=== PATIENT | female | born 1935 | race Caucasian/White ===

== ENCOUNTER → 2017-04-24 | Outpatient (CLI) | payer MEDICARE, BC ==
[2013-12-24 10:25] VITALS: BMI 25.7
[~2017-04-24] MED LIST: AMIT-104 PO; ASCO100T PO; ASPI-1441 PO; AZIT-1 PO; Aspirin PO; CALC3.7S7 NS; CALC600T72 PO; CELE-1 PO; CET10 PO; ETHA400T30 PO; FOLI-68 PO; GLUC500C29 PO; IBU600 PO; IPRA15SP7 NS; LOR10 PO; LOVA40TA89 PO; METF-410 PO; MULT-820 PO; NADO80TA13 PO; NADOLOL PO; OMEP-218 PO; PAN40 PO; PER PO; RIFA300C50 PO; TOLT4CAP13 PO; TRA50 PO; [UNRECOGNIZED DRUG - CODE] PO; [UNRECOGNIZED DRUG - OTHER]; [UNRECOGNIZED DRUG - OTHER] PO; [UNRECOGNIZED DRUG - REMARK]
== END ==
LOC: AUD 13:00
PROVIDERS: ATTEND Otolaryngology
DX: H93.13 Tinnitus, bilateral (principal)
CPT/HCPCS: 92557; 92570

== ENCOUNTER → 2017-05-18 | Outpatient (CLI) | payer MEDICARE, BC ==
[2013-12-24 10:25] VITALS: BMI 25.7
--- NOTE | 2017-05-18 09:11 | RADIOLOGY IMAGING REPORT ---
FACILITY: [facility] - [place] PATIENT NAME: Catherine Ward : 1935 MR: [id number] V: [id number] EXAM DATE: ORDERING PHYSICIAN: RICHARD RUIZ TECHNOLOGIST: Location: [facility] - [place] Patient: Catherine Ward : 1935 Visit/Account:[id number] Date of Sevice: 05/18/2017 CHEST W/O CONTRAST Indication: Lung nodule, previous smoker Comparison: CT chest 09/25/[address] chest 06/26/2016 TECHNIQUE: Noncontrast CT thoracic inlet through the adrenal glands obtained. One of the following d ose optimization techniques was utilized in the performance of this exam: automated exposure control; adjustment of the mA and/or kV according to the patient's size; or use of an iterative reconstructio n technique. Specific details can be referenced in the facility's radiology CT exam operational emma cy. FINDINGS: Lungs: In the right upper lobe there is a 4 mm smooth bordered nodule (image 50/103), unchanged from 06/26/2016. There is a left apical nodule, 6 mm (image 15/103), also unchanged. Linear scarring is se en in the lingula, stable. There is overall improved aeration of the lungs compared to prior study. L inear scarring is also seen in the right lung base, stable. Mediastinum / shaunna: Heart size is normal. Great vessels are unremarkable. Musculoskeletal / Body wall: There are postoperative changes from a left mastectomy. Lower neck: Normal. Upper abdomen: Visualized organs of the upper abdomen are normal. IMPRESSION: 1. There is a 6 mm nodule right upper lobe, 4 mm nodule left upper lobe. Both nodules are unchanged f rom the oldest available comparison CT dated 06/26/2016. 2. Postoperative changes left mastectomy, stable. 3. Linear scarring lingula and right lower lobe. Recommend follow-up noncontrast chest CT in one year. Report Dictated By: Maulik Caldwell at 05/18/2017 8:41 AM Report E-Signed By: Maulik Caldwell at 05/18/2017 9:06 AM WSN:[id number]
== END ==
LOC: CT 01:08
PROVIDERS: ATTEND Internal Medicine
DX: R91.8 Other nonspecific abnormal finding of lung field (principal); Z90.12 Acquired absence of left breast and nipple
CPT/HCPCS: 71250

== ENCOUNTER 2017-07-08 08:53 | Emergency (ER) | payer MEDICARE, BC ==
[2013-12-24 10:25] VITALS: Wt 68.5 kg
--- NOTE | 2017-07-08 09:08 | ER Report ---
History and Physical Time Seen By MD: 09:07 Hx. of Stated Complaint: PT REPORTS A MIGRAINE, TOOK 2 EXCEDRIN MIGRAINE AT HOME. L HAND NUMBNESS WITH MIGRAINE- NEW SYPMTOM WITH MIGRAINE- PT REPORTS NO NUMBNESS IN HAND AT THIS TIME HPI/ROS CHIEF COMPLAINT: Left hand numbness HISTORY OF PRESENT ILLNESS:Patient is a 81-year-old female who states that she developed a migraine headache which she does have a history of. Soon after the migraine she developed some numbness to her left hand. She did take 2 Excedrin the migraine has resolved. She then took an aspirin and is no longer experiencing numbness to her left hand. At no time was or any speech difficulties, balance issues or coordination issues. No motor weakness was noted. What is a typical with regard to this migraine headache is the numbness to the left hand. Patient has concern about having a stroke as that her ' s sister experienced 1 and she has concerns that this could represents stroke. The patient again currently is symptom-free she denies any chest pain or shortness of breath. She does not carry a diagnosis of hypertension we'll hypertensive on initial evaluation. REVIEW OF SYSTEMS: Constitutional: No fever, no chills. Eyes: No discharge. ENT: No sore throat. Cardiovascular: No chest pain, no palpitations. Respiratory: No cough, no shortness of breath. Gastrointestinal: No abdominal pain, no vomiting. Genitourinary: No hematuria. Musculoskeletal: No back pain. Skin: No rashes. Neurological: Currently No headache. Left hand numbness has resolved Allergies: Uncoded Allergies: hayfever (Allergy, Mild, UNKNOWN, 08/09/11) Home Meds Active Scripts Ipratropium [place] 0.06% Ns (IPRATROPIUM BROMIDE 0.06% NS) 15 Ml [place], 2 SPRAYS NS BID for 30 Days, #1 BOT 11 Refills Prov:LYNDA TORREZ JR, MD 03/14/17 [Nadolol] 40 MG TAB No Conflict Check, 40 MG PO DAILY, #0 TAB Restart in about 3 days. If you get light headed on the medication, stop it and follow up with your regular doctor. Prov:TERRI CORDOBA MD 12/26/13 Reported Medications Ascorbic Acid (VITAMIN C) 500 Mg Tablet, 500 MG PO QDAY, TAB 07/08/17 Calcium Carbonate (CALCIUM) 600 Mg Tablet, 1200 MG PO QDAY 07/08/17 Aspirin (ASPIR 81) 81 Mg Tablet.dr, 81 MG PO Q2D, TAB 07/08/17 [magnesium ] No Conflict Check, 100 MG PO BID 07/08/17 Montelukast Sodium (SINGULAIR) 10 Mg Tablet, 1 TAB PO QDAY, TAB 07/08/17 Levothyroxine Sodium (LEVOTHYROXINE SODIUM) 50 Mcg Tablet, QDAY 07/08/17 Nortriptyline Hcl (NORTRIPTYLINE HCL) 10 Mg Cap, QDAY 07/08/17 Ethambutol Hcl (ETHAMBUTOL HCL) 400 Mg Tablet, 400 MG PO 02/23/17 Folic Acid (FOLIC ACID) 1 Mg Tablet, 1 MG PO QDAY, TAB 02/23/17 Rifampin (RIFAMPIN) 300 Mg Capsule, 300 MG PO, CAPSULE 02/23/17 Metformin Hcl (METFORMIN HCL) 500 Mg Tablet, 1 TAB PO BID, TAB 02/23/17 Omeprazole Magnesium (PRILOSEC OTC) 20 Mg Tablet.dr, 1 TAB PO QDAY TAKE ONE TABLET BY MOUTH ONCE A DAY 12/16/13 Multivitamins (Multivitamin) 1 Tab Tablet, 1 TAB PO QDAY 12/01/08 Lovastatin (Lovastatin) 40 Mg Tablet, 40 MG PO QDAY 12/01/08 Tolterodine Tartrate (Detrol La) 4 Mg Cap.sr.24h, 4 MG PO QDAY 12/01/08 Discontinued Reported Medications Azithromycin (ZITHROMAX) 250 Mg Tablet, 2 TAB PO ONCE, TAB 02/23/17 Amitriptyline Hcl (AMITRIPTYLINE HCL) 10 Mg Tablet, 10 MG PO QHS, #5 TAB TAKE ONE TABLET BY MOUTH AT BEDTIME 12/23/13 Discontinued Scripts [Aspirin] 325 MG TAB No Conflict Check, 325 MG PO QDAY, TAB Take for 4 weeks then resume the 81mg tablet a day of Aspirin Prov:TERRI CORDOBA MD 12/26/13 Past Medical/Surgical History Past medical history for migraines, hyperlipidemia, GERD, type II diabetes, history of cataract extraction, hysterectomy, mastectomy bilateral, lumbar laminectomy. 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 Smoking Status: Never Smoker Hx Alcohol Use: No Constitutional Vital Sign - Last 24 Hours 07/08/17 07/08/17 07/08/17 07/08/17 08:57 08:58 08:59 09:08 Temp 97.4 Pulse 69 64 Resp 16 B/P (MAP) 204/163 (177) 199/96 199/96 (130) Pulse Ox 94 O2 Delivery Room Air 07/08/17 07/08/17 07/08/17 07/08/17 09:23 09:30 09:35 10:13 Pulse 63 63 B/P (MAP) 196/108 (137) 187/85 (119) Pulse Ox 91 92 07/08/17 07/08/17 07/08/17 07/08/17 10:15 10:17 10:19 10:24 Pulse 62 B/P (MAP) 173/90 (117) 139/64 (89) 125/98 (107) Pulse Ox 89 07/08/17 07/08/17 07/08/17 07/08/17 10:24 10:29 10:30 10:34 Pulse 63 61 61 B/P (MAP) 139/73 (95) Pulse Ox 87 90 86 07/08/17 07/08/17 07/08/17 07/08/17 10:39 10:44 10:49 10:54 Pulse 59 56 55 53 Pulse Ox 88 93 90 90 07/08/17 07/08/17 07/08/17 07/08/17 11:00 11:09 11:14 11:29 Pulse 51 54 54 B/P (MAP) 153/84 (107) Pulse Ox 91 07/08/17 07/08/17 11:30 11:55 B/P (MAP) 177/81 (113) 184/79 (114) Physical Exam General/Constitutional: Patient is awake, alert, nontoxic and in no acute respiratory distress. Head: Normocephalic and atraumatic. Eyes: Conjunctival clear, Pupils are equal and reactive to light. Extraocular muscles are intact and symmetrical. Sclera are clear and anicteric. Funduscopic exam reveals normal venous pulsations no apparent retinal hemorrhages noted. Ears:External canals are clear. Tympanic membranes are clear with normal landmarks and light reflex. Nares: No rhinorrhea or bleeding. Turbinates are pink and moist. Oropharyngeal: Mucous membranes are moist. There is no pharyngeal erythema or exudate. There are no palatal petechiae. Uvula is midline and symmetrical. Neck: Supple, no adenopathy. Cardiovascular: Heart is regular rate and rhythm without audible murmurs, rubs or gallops. Pulmonary: Lungs are clear to auscultation bilaterally. There are no wheezes, rales, or rhonchi. Chest rise is symmetrical Abdomen: Soft, nontender, no guarding or peritoneal signs. Extremities: No gross deformities, No peripheral cyanosis. Able to move all 4 extremities. Negative Tinel's sign negative Phalen's sign Neuro: Alert and oriented X3, Cranial nerves 2 thru 12 are intact and symmetrical. Patient has normal gait. No ataxia Skin: No rashes, skin is warm dry and well perfused. NIH stroke scale 0 Medical Decision Making Data Points Result Diagram: 07/08/17 0933 07/08/17 0933 Laboratory Hematology Test 07/08/17 09:33 Red Blood Count 4.98 M/uL (4.17-5.56) Mean Corpuscular Volume 92.6 fL (80.0-96.0) Mean Corpuscular Hemoglobin 32.4 pg (26.0-33.0) Mean Corpuscular Hemoglobin Concent 34.9 g/dL (32.0-36.0) Red Cell Distribution Width 13.0 % (11.5-14.5) Mean Platelet Volume 9.6 fL (7.2-11.1) Neutrophils (%) (Auto) 57.4 % (39.4-72.5) Lymphocytes (%) (Auto) 32.6 % (17.6-49.6) Monocytes (%) (Auto) 7.4 % (4.1-12.4) Eosinophils (%) (Auto) 1.8 % (0.4-6.7) Basophils (%) (Auto) 0.8 % (0.3-1.4) Nucleated RBC Relative Count (auto) 0.0 /100WBC Neutrophils # (Auto) 3.8 K/uL (2.0-7.4) Lymphocytes # (Auto) 2.1 K/uL (1.3-3.6) Monocytes # (Auto) 0.5 K/uL (0.3-1.0) Eosinophils # (Auto) 0.1 K/uL (0.0-0.5) Basophils # (Auto) 0.1 K/uL (0.0-0.1) Nucleated RBC Absolute Count (auto) 0.00 K/uL Urine Color Yellow Urine Clarity Slightly-cloudy Urine pH 7.0 pH (4.8-9.5) Urine Specific [place] 1.010 Urine Protein Negative mg/dL (NEGATIVE) Urine Glucose (UA) Negative mg/dL (NEGATIVE) Urine Ketones Negative mg/dL (NEGATIVE) Urine Blood Small (NEGATIVE) Urine Nitrite Negative (NEGATIVE) Urine Bilirubin Negative (NEGATIVE) Urine Urobilinogen Negative mg/dL (0.2-1.9) Urine Leukocyte Esterase Moderate (NEGATIVE) Urine RBC 3 /HPF (0-2/HPF) Urine WBC 2 /HPF (0-5/HPF) Urine Squamous Epithelial Cells Many /LPF (</=FEW) Urine Renal Epithelial Cells Few /LPF (NONE-FEW) Urine Bacteria Negative /HPF (NONE-FEW) Urine Hyaline Casts Few /LPF (NONE-FEW) Urine Mucus Few /HPF (NONE-FEW) Sodium Level 140 mmol/L (137-145) Potassium Level 3.7 mmol/L (3.5-5.0) Chloride Level 103 mmol/L (98-107) Carbon Dioxide Level 24 mmol/L (22-31) Blood Urea Nitrogen 15 mg/dl (7-18) Creatinine 0.70 mg/dl (0.52-1.04) Glomerular Filtration Rate Calc > 60.0 Random Glucose 124 mg/dl (75-110) Calcium Level 9.7 mg/dl (8.4-10.2) Total Bilirubin 0.4 mg/dl (0.2-1.3) Aspartate Amino Transf (AST/SGOT) 26 U/L (0-35) Alanine Aminotransferase (ALT/SGPT) 21 U/L (0-56) Alkaline Phosphatase 62 U/L (0-126) Total Protein 6.2 gm/dl (6.3-8.2) Albumin 3.6 g/dl (3.5-5.0) Chemistry Test 07/08/17 09:33 White Blood Count 6.5 k/uL (4.5-11.0) Red Blood Count 4.98 M/uL (4.17-5.56) Hemoglobin 16.1 g/dL (12.0-16.0) Hematocrit 46.2 % (34.0-47.0) Mean Corpuscular Volume 92.6 fL (80.0-96.0) Mean Corpuscular Hemoglobin 32.4 pg (26.0-33.0) Mean Corpuscular Hemoglobin Concent 34.9 g/dL (32.0-36.0) Red Cell Distribution Width 13.0 % (11.5-14.5) Platelet Count 171 K/uL (150-450) Mean Platelet Volume 9.6 fL (7.2-11.1) Neutrophils (%) (Auto) 57.4 % (39.4-72.5) Lymphocytes (%) (Auto) 32.6 % (17.6-49.6) Monocytes (%) (Auto) 7.4 % (4.1-12.4) Eosinophils (%) (Auto) 1.8 % (0.4-6.7) Basophils (%) (Auto) 0.8 % (0.3-1.4) Nucleated RBC Relative Count (auto) 0.0 /100WBC Neutrophils # (Auto) 3.8 K/uL (2.0-7.4) Lymphocytes # (Auto) 2.1 K/uL (1.3-3.6) Monocytes # (Auto) 0.5 K/uL (0.3-1.0) Eosinophils # (Auto) 0.1 K/uL (0.0-0.5) Basophils # (Auto) 0.1 K/uL (0.0-0.1) Nucleated RBC Absolute Count (auto) 0.00 K/uL Urine Color Yellow Urine Clarity Slightly-cloudy Urine pH 7.0 pH (4.8-9.5) Urine Specific [place] 1.010 Urine Protein Negative mg/dL (NEGATIVE) Urine Glucose (UA) Negative mg/dL (NEGATIVE) Urine Ketones Negative mg/dL (NEGATIVE) Urine Blood Small (NEGATIVE) Urine Nitrite Negative (NEGATIVE) Urine Bilirubin Negative (NEGATIVE) Urine Urobilinogen Negative mg/dL (0.2-1.9) Urine Leukocyte Esterase Moderate (NEGATIVE) Urine RBC 3 /HPF (0-2/HPF) Urine WBC 2 /HPF (0-5/HPF) Urine Squamous Epithelial Cells Many /LPF (</=FEW) Urine Renal Epithelial Cells Few /LPF (NONE-FEW) Urine Bacteria Negative /HPF (NONE-FEW) Urine Hyaline Casts Few /LPF (NONE-FEW) Urine Mucus Few /HPF (NONE-FEW) Glomerular Filtration Rate Calc > 60.0 Calcium Level 9.7 mg/dl (8.4-10.2) Total Bilirubin 0.4 mg/dl (0.2-1.3) Aspartate Amino Transf (AST/SGOT) 26 U/L (0-35) Alanine Aminotransferase (ALT/SGPT) 21 U/L (0-56) Alkaline Phosphatase 62 U/L (0-126) Total Protein 6.2 gm/dl (6.3-8.2) Albumin 3.6 g/dl (3.5-5.0) Urinalysis Test 07/08/17 09:33 Urine Color Yellow Urine Clarity Slightly-cloudy Urine pH 7.0 pH (4.8-9.5) Urine Specific [place] 1.010 Urine Protein Negative mg/dL (NEGATIVE) Urine Glucose (UA) Negative mg/dL (NEGATIVE) Urine Ketones Negative mg/dL (NEGATIVE) Urine Blood Small (NEGATIVE) Urine Nitrite Negative (NEGATIVE) Urine Bilirubin Negative (NEGATIVE) Urine Urobilinogen Negative mg/dL (0.2-1.9) Urine Leukocyte Esterase Moderate (NEGATIVE) Urine RBC 3 /HPF (0-2/HPF) Urine WBC 2 /HPF (0-5/HPF) Urine Squamous Epithelial Cells Many /LPF (</=FEW) Urine Renal Epithelial Cells Few /LPF (NONE-FEW) Urine Bacteria Negative /HPF (NONE-FEW) Urine Hyaline Casts Few /LPF (NONE-FEW) Urine Mucus Few /HPF (NONE-FEW) EKG/Imaging EKG Interpretation EKG shows normal sinus rhythm with ventricular rate of [address] segment or T-wave abnormalities. Monitor Interpretation: Normal Sinus Rhythm Imaging FACILITY: [facility] PATIENT NAME: Catherine Ward : 1935 MR: [id number] V: [id number] EXAM DATE: ORDERING PHYSICIAN: BOY BARRY TECHNOLOGIST: [facility] Patient: Catherine Ward : 1935 Visit/Account:[id number] Date of Sevice: 07/08/2017 Study: CT scan of the brain without intravenous contrast. Indication: Headache, left hand numbness Comparison study:None Technique: Multiple axial images were obtained through the brain without the use of intravenous contrast. One of the following dose optimization techniques was utilized in the performance of this exam: Automated exposure control; adjustment of the mA and/ or kV according to the patient's size; or use of an iterative reconstruction technique. Specific details can be referenced in the facility's radiology CT exam operational policy. The examination demonstrates no evidence of acute intracranial hemorrhage. There is no evidence of hydrocephalus. There are bilateral frontal hygromas present. There is no evidence of acute or subacute blood products within these collections. There are no previous studies available for comparison. There is no abnormal density identified within the brain parenchyma. There is mild atrophy present. There is no evidence of disruption of the peripheral troy-white junction. The bony structures are unremarkable. IMPRESSION: No acute intracranial abnormality. Report Dictated By: Fahad Montesinos at 07/08/2017 10:04 AM Report E-Signed By: Fahad Montesinos at 07/08/2017 10:06 AM WSN:[id number] FACILITY: [facility] PATIENT NAME: Catherine Ward : 1935 MR: [id number] V: [id number] EXAM DATE: ORDERING PHYSICIAN: BOY BARRY TECHNOLOGIST: [facility] Patient: Catherine Ward : 1935 Visit/Account:[id number] Date of Sevice: 07/08/2017 Carotid ultrasound Indication: Left hand numbness. Comparison:None available Findings: On the right : Peak systolic velocity of the right common carotid artery is 127 cm/s Peak systolic velocity of the right internal carotid artery is 212 cm/s There is normal antegrade flow of the right vertebral artery. The right ICA/CCA ratio is 1.7 Echogenic shadowing atherosclerosis within the carotid bulb. Mild atherosclerosis within the proximal ICA. Right ICA is noted to be tortuous. On the left: Peak systolic velocity of the left common carotid artery is 99 cm/s Peak systolic velocity of the left internal carotid artery is 81 cm/s There is normal antegrade flow of the left vertebral artery. The left ICA/CCA ratio is 0.8 Mild echogenic shadowing calcified plaque within the carotid bulb. IMPRESSION: 1. No hemodynamically significant stenosis of the bilateral common carotid arteries and bilateral internal carotid arteries as above. 2. Findings suggestive of approximately 50% stenosis of the proximal right ICA. 3. Echogenic calcified plaque within the bilateral carotid bulbs. Carotid % stenosis: Velocity criteria are extrapolated from diameter data as defined by the Society of Radiologists in Ultrasound Consensus Conference, Radiology 2003; 229; 340-346 Report Dictated By: Terry Humphreys MD at 07/08/2017 11:10 AM Report E-Signed By: Terry Humphreys MD at 07/08/2017 11:15 AM WSN:[id number] ED Course/Re-evaluation Clinical Indication for ER IV: IV Access ED Course Plan will be to perform CT scan of the head to look for any acute stroke findings or bleeding. We'll also perform carotid ultrasound. We will do blood work including CBC CMP and patient is hypertensive on arrival with a blood pressure of approximately 200/100 on repeat Lopressor testing. We will give 20 mg of IV labetalol. 07/08/2017 11:26:56 am current blood pressure is 116/63 after IV labetalol. Plan will be discharge the patient home with follow-up with her primary care provider Decision to Disposition Date: July 08, 2017 Decision to Disposition Time: 11:26 Depart Departure Latest Vital Signs Vital Signs Date Time Temp Pulse Resp B/P (MAP) Pulse Ox O2 Delivery O2 Flow Rate FiO2 07/08/17 11:55 184/79 (114) 07/08/17 11:29 54 07/08/17 11:09 91 07/08/17 08:58 97.4 16 Room Air Impression: Primary Impression: Migraine Condition: Improved Disposition: HOME OR SELF-CARE Referrals: GABRIEL GANDHI (PCP) 1 Week Patient Instructions: Migraine Headache (GEN) Additional Instructions: Call Dr. Gandhi to make an appointment to follow up on your carotid Doppler results Problem Qualifiers Primary Impression: Migraine Migraine type: unspecified Status migrainosus presence: without status migrainosus Intractability: not intractable Qualified Codes: G43.909 - Migraine, unspecified, not intractable, without status migrainosus BOY BARRY MD July 08, 2017 09:08
[2017-07-08] MEDS ORDERED: CALC600T63 PO (09:25)
[2017-07-08] MEDS ORDERED: ASPI-1471 PO (09:25)
[2017-07-08] MEDS ORDERED: magnesium PO (09:25)
[2017-07-08] MEDS ORDERED: MONT10TA PO (09:25)
[2017-07-08] MEDS ORDERED: LEVO50TA86 (09:25)
[2017-07-08] MEDS ORDERED: ASCO-182 PO (09:25)
[2017-07-08] MEDS ORDERED: NOR10 (09:25)
--- NOTE | 2017-07-08 09:39 | EKG ---
FACILITY: [facility] PATIENT NAME: MARY MEDEROS : [id number] MR: [id number] V: [id number] EXAM DATE: ORDERING PHYSICIAN: BOY BARRY TECHNOLOGIST: BRENNAN Test Reason : POSS STOKE Blood Pressure : / mmHG Vent. Rate : 060 BPM Atrial Rate : 060 BPM P-R Int : 128 ms QRS Dur : 086 ms QT Int : 460 ms P-R-T Axes : 047 -07 052 degrees QTc Int : 460 ms Sinus rhythm with Possible premature atrial complexes with aberrant conduction Otherwise normal ECG When compared with ECG of 25-OCT-2016 09:37, aberrant conduction is now present Confirmed by KUN ROME ([id number]) on 07/08/2017 4:15:55 PM Referred By: ASHA Confirmed By:KUN ROME
[2017-07-08 09:50] LABS: PLATELET COUNT, AUTOMATED 171 K/uL (150-450)
[2017-07-08] MEDS ORDERED: LABETALOL HCL 100 MG/20ML VIAL IVP ONE (09:50)
--- NOTE | 2017-07-08 10:10 | RADIOLOGY IMAGING REPORT ---
FACILITY: [facility] PATIENT NAME: Catherine Ward : 1935 MR: [id number] V: [id number] EXAM DATE: ORDERING PHYSICIAN: BOY BARRY TECHNOLOGIST: Location: [facility] - [place], [place] Patient: Catherine Ward : 1935 Visit/Account:[id number] Date of Sevice: 07/08/2017 Study: CT scan of the brain without intravenous contrast. Indication: Headache, left hand numbness Comparison study:None Technique: Multiple axial images were obtained through the brain without the use of intravenous contr ast. One of the following dose optimization techniques was utilized in the performance of this exam: Autom ated exposure control; adjustment of the mA and/or kV according to the patient's size; or use of an i terative reconstruction technique. Specific details can be referenced in the facility's radiology C T exam operational policy. The examination demonstrates no evidence of acute intracranial hemorrhage. There is no evidence of h ydrocephalus. There are bilateral frontal hygromas present. There is no evidence of acute or subacute blood products within these collections. There are no previous studies available for comparison. There is no abnormal density identified within the brain parenchyma. There is mild atrophy present. There is no evidence of disruption of the peripheral troy-white junction. The bony structures are unremarkable. IMPRESSION: No acute intracranial abnormality. Report Dictated By: Fahad Montesinos at 07/08/2017 10:04 AM Report E-Signed By: Fahad Montesinos at 07/08/2017 10:06 AM WSN:[id number]
--- NOTE | 2017-07-08 11:19 | RADIOLOGY IMAGING REPORT ---
FACILITY: [facility] [place] PATIENT NAME: Catherine Ward : 1935 MR: [id number] V: [id number] EXAM DATE: ORDERING PHYSICIAN: BOY BARRY TECHNOLOGIST: Location: [facility] - [place] Patient: Catherine Ward : 1935 Visit/Account:[id number] Date of Sevice: 07/08/2017 Carotid ultrasound Indication: Left hand numbness. Comparison:None available Findings: On the right : Peak systolic velocity of the right common carotid artery is 127 cm/s Peak systolic velocity of the right internal carotid artery is 212 cm/s There is normal antegrade flow of the right vertebral artery. The right ICA/CCA ratio is 1.7 Echogenic shadowing atherosclerosis within the carotid bulb. Mild atherosclerosis within the proximal ICA. Right ICA is noted to be tortuous. On the left: Peak systolic velocity of the left common carotid artery is 99 cm/s Peak systolic velocity of the left internal carotid artery is 81 cm/s There is normal antegrade flow of the left vertebral artery. The left ICA/CCA ratio is 0.8 Mild echogenic shadowing calcified plaque within the carotid bulb. IMPRESSION: 1. No hemodynamically significant stenosis of the bilateral common carotid arteries and bilateral int ernal carotid arteries as above. 2. Findings suggestive of approximately 50% stenosis of the proximal right ICA. 3. Echogenic calcified plaque within the bilateral carotid bulbs. Carotid % stenosis: Velocity criteria are extrapolated from diameter data as defined by the Society o f Radiologists in Ultrasound Consensus Conference, Radiology 2003; 229; 340-346 Report Dictated By: Terry Humphreys MD at 07/08/2017 11:10 AM Report E-Signed By: Terry Humphreys MD at 07/08/2017 11:15 AM WSN:[id number]
[2017-07-08 11:55] VITALS: BP 184/79
== END 2017-07-08 11:56 | disposition home or self-care (01) ==
LOC: ER 09:13
DX: G43.909 Migraine, unspecified, not intractable, without status migrainosus (principal)
CPT/HCPCS: 70450; 81001; 85025; 93005; 93880; 96374; 99284; J3490; 82040; 82247; 82310; 82374; 82435; 82565; 82947; 84075; 84132; 84155; 84295; 84450; 84460; 84520

== ENCOUNTER 2017-07-22 11:41 | Emergency (ER) | payer MEDICARE, BC ==
[2013-12-24 10:25] VITALS: Wt 68.6 kg
[~2017-07-22 11:41] MED LIST changes: +ASCO-182 PO; +ASPI-1471 PO; +CALC600T63 PO; +LEVO50TA86; -METF-410 PO; +METF-411 PO; +MONT10TA PO; +NOR10; +magnesium PO
--- NOTE | 2017-07-22 11:52 | ER Report ---
History and Physical Time Seen By MD: 11:52 Hx. of Stated Complaint: HIGH BP AT HOME (198/76), MIGRANE POSSIBLE FROM THE BP HPI/ROS CHIEF COMPLAINT: Headache, hypertension HISTORY OF PRESENT ILLNESS: 82-year-old female patient presents to emergency room with complaint of headache and hypertension. Patient states she has had significantly more headaches over the past several weeks. She states that the headaches have increased further happening 2-3 times a week. Patient states that she has been seen and evaluated in the emergency room 2 weeks ago for the same problem. She was discharged home after everything looked good. She is seeing her primary care provider who has started her on some blood pressure medications. Family is concerned because her blood pressure has continually gone up. They state that she has not had any nausea or vomiting. However she has had her migraines. She states the migraines start off with an aura, and then she developed headache, today it is over the left eye. She states the light seems to make it a little bit worse, however there is nothing else seems to make it worse. She did take her normal medication for her migraines, which did not seem to improve. REVIEW OF SYSTEMS: Respiratory: No cough, no dyspnea. Cardiovascular: No chest pain, no palpitations. Gastrointestinal: No vomiting, no abdominal pain. Musculoskeletal: No back pain. Allergies: Uncoded Allergies: hayfever (Allergy, Mild, UNKNOWN, 08/09/11) Home Meds Active Scripts Ipratropium [place] 0.06% Ns (IPRATROPIUM BROMIDE 0.06% NS) 15 Ml [place], 2 SPRAYS NS BID for 30 Days, #1 BOT 11 Refills Prov:LYNDA TORREZ JR, MD 03/14/17 [Nadolol] 40 MG TAB No Conflict Check, 40 MG PO DAILY, #0 TAB Restart in about 3 days. If you get light headed on the medication, stop it and follow up with your regular doctor. Prov:TERRI CORDOBA MD 12/26/13 Reported Medications Valsartan (DIOVAN) 320 Mg Tablet, 320 MG PO BID 07/22/17 Amlodipine Besylate (AMLODIPINE BESYLATE) 2.5 Mg Tablet, 1 TAB PO QDAY, #30 TAB 07/22/17 Azithromycin (ZITHROMAX) 250 Mg Tablet, 1 TAB PO 3XW, TAB 07/22/17 Glucosamine Hcl/Chondr Lorenzo A Na (OSTEO BI-FLEX CAPLET) 1 Each Tablet, 1 EACH PO 07/22/17 Cranberry Extract (CRANBERRY) 200 Mg Capsule, 200 MG PO, CAPSULE 07/22/17 [place]-3 Fatty Acids (FISH OIL CONCENTRATE) 1,000 Mg Capsule, 1000 MG PO, CAPSULE 07/22/17 Ascorbic Acid (VITAMIN C) 500 Mg Tablet, 500 MG PO QDAY, TAB 07/08/17 Calcium Carbonate (CALCIUM) 600 Mg Tablet, 1200 MG PO QDAY 07/08/17 Aspirin (ASPIR 81) 81 Mg Tablet.dr, 81 MG PO Q2D, TAB 07/08/17 [magnesium ] No Conflict Check, 100 MG PO BID 07/08/17 Montelukast Sodium (SINGULAIR) 10 Mg Tablet, 1 TAB PO QDAY, TAB 07/08/17 Levothyroxine Sodium (LEVOTHYROXINE SODIUM) 50 Mcg Tablet, QDAY 07/08/17 Nortriptyline Hcl (NORTRIPTYLINE HCL) 10 Mg Cap, QDAY 07/08/17 Ethambutol Hcl (ETHAMBUTOL HCL) 400 Mg Tablet, 400 MG PO 02/23/17 Folic Acid (FOLIC ACID) 1 Mg Tablet, 1 MG PO QDAY, TAB 02/23/17 Rifampin (RIFAMPIN) 300 Mg Capsule, 300 MG PO, CAPSULE 02/23/17 Metformin Hcl (METFORMIN HCL) 500 Mg Tablet, 1 TAB PO BID, TAB 02/23/17 Omeprazole Magnesium (PRILOSEC OTC) 20 Mg Tablet.dr, 1 TAB PO QDAY TAKE ONE TABLET BY MOUTH ONCE A DAY 12/16/13 Multivitamins (Multivitamin) 1 Tab Tablet, 1 TAB PO QDAY 12/01/08 Lovastatin (Lovastatin) 40 Mg Tablet, 40 MG PO QDAY 12/01/08 Tolterodine Tartrate ([place]) 4 Mg Cap.sr.24h, 4 MG PO QDAY 12/01/08 Past Medical/Surgical History Patient has a past medical history of migraines, irregular heartbeat, hypertension, hyperlipidemia, MAC, reflux, arthritis, rib fractures, foot fracture, back pain, diabetes, hypothyroidism, cancer. Patient has surgical history of mastectomy, skin cancers removed, cataract surgery, tonsillectomy, laminectomy, hysterectomy. Patient has family medical history of cancer. Reviewed Nurses Notes: Yes Smoking Status: Never Smoker Hx Alcohol Use: No Constitutional Vital Sign - Last 24 Hours 07/22/17 07/22/17/07/22/17 11:45 11:46 11:51 12:00 Pulse 61 56 Resp 16 18 B/P (MAP) 212/102 212/102 (138) 213/96 (135) Pulse Ox 93 96 O2 Delivery Room Air 07/22/17 07/22/17/07/22/17 12:01 12:11 12:15 12:21 Pulse 57 53 Resp 10 16 42 B/P (MAP) 188/80 (116) Pulse Ox 95 93 96 07/22/17 07/22/17/07/22/17 12:47 12:51 13:00 13:01 Pulse 57 54 Resp 19 29 B/P (MAP) 190/103 (132) 177/91 (119) Pulse Ox 92 94 07/22/17 07/22/17/07/22/17 13:11 13:15 13:21 13:30 Pulse 56 56 Resp 11 26 B/P (MAP) 172/135 (147) 184/90 (121) Pulse Ox 92 93 07/22/17 07/22/17 07/22/17 07/22/17 13:31 13:38 13:43 13:50 Pulse 52 53 Resp 13 17 B/P (MAP) 157/90 (112) 158/119 (132) Pulse Ox 94 95 07/22/17 07/22/17/07/22/17 13:51 13:53 14:00 14:03 Pulse 54 54 Resp 34 11 B/P (MAP) 181/92 (121) 146/95 (112) Pulse Ox 93 92 07/22/17 07/22/17 07/22/17 07/22/17 14:10 14:13 14:20 14:23 Pulse 53 54 Resp 18 21 B/P (MAP) 161/86 (111) 106/73 (84) Pulse Ox 92 92 07/22/17 14:30 B/P (MAP) 164/84 (110) Physical Exam General Appearance: The patient is alert, has no immediate need for airway protection and no current signs of toxicity. ENT: Tympanic membranes are pearly-troy, auditory canals are patent, mucous membranes are moist. Respiratory: Chest is non tender, lungs are clear to auscultation. Cardiac: regular rate and rhythm Gastrointestinal: Abdomen is soft and non tender, no masses, bowel sounds normal. Musculoskeletal: Neck: Neck is supple and non tender. Extremities have full range of motion and are non tender. Skin: No rashes or lesions. Neuro: Patient alert and oriented 4, cranial nerves II through XII grossly intact. DIFFERENTIAL DIAGNOSIS: After history and physical exam differential diagnosis was considered for hypertensive urgency, hypertensive emergency, migraine, headache. Medical Decision Making Data Points Result Diagram: 07/22/17 1155 07/22/17 1155 Laboratory Hematology Test 07/22/17 11:55 07/22/17 12:48 Red Blood Count 5.23 M/uL (4.17-5.56) Mean Corpuscular Volume 92.9 fL (80.0-96.0) Mean Corpuscular Hemoglobin 32.5 pg (26.0-33.0) Mean Corpuscular Hemoglobin Concent 35.1 g/dL (32.0-36.0) Red Cell Distribution Width 13.2 % (11.5-14.5) Mean Platelet Volume 9.7 fL (7.2-11.1) Neutrophils (%) (Auto) 59.2 % (39.4-72.5) Lymphocytes (%) (Auto) 30.8 % (17.6-49.6) Monocytes (%) (Auto) 7.1 % (4.1-12.4) Eosinophils (%) (Auto) 2.0 % (0.4-6.7) Basophils (%) (Auto) 0.9 % (0.3-1.4) Nucleated RBC Relative Count (auto) 0.0 /100WBC Neutrophils # (Auto) 4.5 K/uL (2.0-7.4) Lymphocytes # (Auto) 2.3 K/uL (1.3-3.6) Monocytes # (Auto) 0.5 K/uL (0.3-1.0) Eosinophils # (Auto) 0.2 K/uL (0.0-0.5) Basophils # (Auto) 0.1 K/uL (0.0-0.1) Nucleated RBC Absolute Count (auto) 0.00 K/uL Erythrocyte Sedimentation Rate 5 mm/HOUR (0-30) Sodium Level 140 mmol/L (137-145) Potassium Level 4.1 mmol/L (3.5-5.0) Chloride Level 103 mmol/L (98-107) Carbon Dioxide Level 27 mmol/L (22-31) Blood Urea Nitrogen 13 mg/dl (7-18) Creatinine 0.70 mg/dl (0.52-1.04) Glomerular Filtration Rate Calc > 60.0 Random Glucose 101 mg/dl (75-110) Calcium Level 9.9 mg/dl (8.4-10.2) Total Bilirubin 0.4 mg/dl (0.2-1.3) Aspartate Amino Transf (AST/SGOT) 29 U/L (0-35) Alanine Aminotransferase (ALT/SGPT) 26 U/L (0-56) Alkaline Phosphatase 72 U/L (0-126) Troponin I < 0.012 ng/ml C-Reactive Protein < 0.5 mg/dl (<1.0) Total Protein 6.7 gm/dl (6.3-8.2) Albumin 4.0 g/dl (3.5-5.0) Urine Color Yellow Urine Clarity Cloudy Urine pH 7.0 pH (4.8-9.5) Urine Specific [place] 1.008 Urine Protein Negative mg/dL (NEGATIVE) Urine Glucose (UA) Negative mg/dL (NEGATIVE) Urine Ketones Negative mg/dL (NEGATIVE) Urine Blood Small (NEGATIVE) Urine Nitrite Negative (NEGATIVE) Urine Bilirubin Negative (NEGATIVE) Urine Urobilinogen Negative mg/dL (0.2-1.9) Urine Leukocyte Esterase Moderate (NEGATIVE) Urine RBC 6 /HPF (0-2/HPF) Urine WBC 6 /HPF (0-5/HPF) Urine Squamous Epithelial Cells Many /LPF (</=FEW) Urine Transitional Epithelial Cells Moderate /LPF (NONE-FEW) Urine Amorphous Crystals Few /HPF Urine Bacteria Few /HPF (NONE-FEW) Urine Mucus None /HPF (NONE-FEW) Chemistry Test 07/22/17 11:55 07/22/17 12:48 White Blood Count 7.5 k/uL (4.5-11.0) Red Blood Count 5.23 M/uL (4.17-5.56) Hemoglobin 17.0 g/dL (12.0-16.0) Hematocrit 48.5 % (34.0-47.0) Mean Corpuscular Volume 92.9 fL (80.0-96.0) Mean Corpuscular Hemoglobin 32.5 pg (26.0-33.0) Mean Corpuscular Hemoglobin Concent 35.1 g/dL (32.0-36.0) Red Cell Distribution Width 13.2 % (11.5-14.5) Platelet Count 198 K/uL (150-450) Mean Platelet Volume 9.7 fL (7.2-11.1) Neutrophils (%) (Auto) 59.2 % (39.4-72.5) Lymphocytes (%) (Auto) 30.8 % (17.6-49.6) Monocytes (%) (Auto) 7.1 % (4.1-12.4) Eosinophils (%) (Auto) 2.0 % (0.4-6.7) Basophils (%) (Auto) 0.9 % (0.3-1.4) Nucleated RBC Relative Count (auto) 0.0 /100WBC Neutrophils # (Auto) 4.5 K/uL (2.0-7.4) Lymphocytes # (Auto) 2.3 K/uL (1.3-3.6) Monocytes # (Auto) 0.5 K/uL (0.3-1.0) Eosinophils # (Auto) 0.2 K/uL (0.0-0.5) Basophils # (Auto) 0.1 K/uL (0.0-0.1) Nucleated RBC Absolute Count (auto) 0.00 K/uL Erythrocyte Sedimentation Rate 5 mm/HOUR (0-30) Glomerular Filtration Rate Calc > 60.0 Calcium Level 9.9 mg/dl (8.4-10.2) Total Bilirubin 0.4 mg/dl (0.2-1.3) Aspartate Amino Transf (AST/SGOT) 29 U/L (0-35) Alanine Aminotransferase (ALT/SGPT) 26 U/L (0-56) Alkaline Phosphatase 72 U/L (0-126) Troponin I < 0.012 ng/ml C-Reactive Protein < 0.5 mg/dl (<1.0) Total Protein 6.7 gm/dl (6.3-8.2) Albumin 4.0 g/dl (3.5-5.0) Urine Color Yellow Urine Clarity Cloudy Urine pH 7.0 pH (4.8-9.5) Urine Specific [place] 1.008 Urine Protein Negative mg/dL (NEGATIVE) Urine Glucose (UA) Negative mg/dL (NEGATIVE) Urine Ketones Negative mg/dL (NEGATIVE) Urine Blood Small (NEGATIVE) Urine Nitrite Negative (NEGATIVE) Urine Bilirubin Negative (NEGATIVE) Urine Urobilinogen Negative mg/dL (0.2-1.9) Urine Leukocyte Esterase Moderate (NEGATIVE) Urine RBC 6 /HPF (0-2/HPF) Urine WBC 6 /HPF (0-5/HPF) Urine Squamous Epithelial Cells Many /LPF (</=FEW) Urine Transitional Epithelial Cells Moderate /LPF (NONE-FEW) Urine Amorphous Crystals Few /HPF Urine Bacteria Few /HPF (NONE-FEW) Urine Mucus None /HPF (NONE-FEW) Urinalysis Test 07/22/17 12:48 Urine Color Yellow Urine Clarity Cloudy Urine pH 7.0 pH (4.8-9.5) Urine Specific [place] 1.008 Urine Protein Negative mg/dL (NEGATIVE) Urine Glucose (UA) Negative mg/dL (NEGATIVE) Urine Ketones Negative mg/dL (NEGATIVE) Urine Blood Small (NEGATIVE) Urine Nitrite Negative (NEGATIVE) Urine Bilirubin Negative (NEGATIVE) Urine Urobilinogen Negative mg/dL (0.2-1.9) Urine Leukocyte Esterase Moderate (NEGATIVE) Urine RBC 6 /HPF (0-2/HPF) Urine WBC 6 /HPF (0-5/HPF) Urine Squamous Epithelial Cells Many /LPF (</=FEW) Urine Transitional Epithelial Cells Moderate /LPF (NONE-FEW) Urine Amorphous Crystals Few /HPF Urine Bacteria Few /HPF (NONE-FEW) Urine Mucus None /HPF (NONE-FEW) EKG/Imaging EKG Interpretation 12 lead EKG: Rhythm: Sinus bradycardia with ventricular rate of 53 bpm. [place]: normal QRS: normal ST segments: normal Imaging CHEST PA AND LAT COMPARISONS: 2 view chest dated July 29, 2016 ADDITIONAL PERTINENT HISTORY: Headache FINDINGS: Cardiomediastinal silhouette: Negative. Pulmonary vasculature: Negative. Lung santoyo: Negative. Pleural spaces: Negative. Osseous structures: Minimal scoliotic curvature convex to the left centered at T12-L1. Spondylitic change involving the upper lumbar spine. Surrounding soft tissues: Negative. IMPRESSION: No evidence of acute cardiopulmonary disease. Report Dictated By: Cesario Esparza MD at 07/22/2017 12:42 PM Report E-Signed By: Cesario Esparza MD at 07/22/2017 12:[address] scan without contrast COMPARISONS: Head CT scan without contrast dated July 08, 2017 ADDITIONAL PERTINENT HISTORY: Headache TECHNIQUE: Multiple axial images were obtained from the skull base to the vertex without IV contrast. One of the following dose optimization techniques was utilized in the performance of this exam: Automated exposure control; adjustment of the mA and/or kV according to the patient's size; or use of an iterative reconstruction technique. Specific details can be referenced in the facility's radiology CT exam operational policy. FINDINGS: Midline shift: Negative Ventricles: Negative Brain parenchyma: Mild patchy hypoattenuation within the periventricular and subcortical white matter, nonspecific but likely representing small vessel ischemic change on a chronic basis. Extra-axial spaces: Moderate cerebral atrophy. Continued prominence of the extra-axial space overlying both frontal lobes favored to represent extensive atrophic changes involving the frontal lobes. No new extra-axial fluid collections when compared to previous exam. Intracranial vasculature: Cavernous internal carotid and distal vertebral artery calcifications. Otherwise negative Osseous structures: Negative Paranasal sinuses and mastoid air cells: Negative Surrounding soft tissues and orbits: Negative IMPRESSION: 1. Age related changes as described above. 2. No evidence of acute intracranial pathology. Report Dictated By: Cesario Esparza MD at 07/22/2017 12:44 PM Report E-Signed By: Cesario Esparza MD at 07/22/2017 12:47 PM ED Course/Re-evaluation ED Course Patient was medicated exam room, history and physical were obtained. Differential diagnoses were considered. On examination lungs are clear, heart is regular, abdomen soft nontender. Patient is alert and oriented 4, cranial nerves II through XII grossly intact. With complaint of hypertension a CBC, CMP , chest x-ray, EKG, troponin, CT scan of the head were done. The lab results were unremarkable, imaging was negative as well as EKG. I discussed results with patient. As a result of her blood pressure being better we did go ahead and give her a low dose of labetalol, 10 mg, as well as amlodipine 2.5 mg. We continue to watch her for bit. Her blood pressure did come down considerably and on reevaluation she stated that her headache was gone. While I was in talking to her her blood pressure did come back up, 160s over 114. I informed them that we will go ahead and watch her for a little bit longer to see how her blood pressure does. Blood pressure then returned to 108/74 prior to discharge. Patient states she's feeling better at this time is ready to go home. We will go ahead and have her increase her amlodipine to 2.5 mg twice a day. 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 I do wonder if there is a connection between the antibiotics she is on for her MAC and her high blood pressure and increased headaches. Discusses patient and the family and they verbalized understanding and agreement. Decision to Disposition Date: July 22, 2017 Decision to Disposition Time: 14:28 Depart Departure Latest Vital Signs Vital Signs Date Time Temp Pulse Resp B/P (MAP) Pulse Ox O2 Delivery O2 Flow Rate FiO2 07/22/17 14:30 164/84 (110) 07/22/17 14:23 54 21 92 07/22/17 11:45 Room Air Impression: Primary Impression: Migraine Additional Impression: HTN (hypertension) Condition: Improved Disposition: HOME OR SELF-CARE Referrals: GABRIEL HUNTER (PCP) Patient Instructions: Migraine Headache (ED) Additional Instructions: Follow up with your construction plant operator tomorrow as scheduled. I would like for you to increase your Amlodipine to twice a day. Continue with your other medications. Return to the ER if condition worsens. I do have some concerns that your antibiotics could be playing a role in this, in addition to the headache it may be involving the blood pressure. Problem Qualifiers Primary Impression: Migraine Migraine type: with aura Status migrainosus presence: without status migrainosus Intractability: not intractable Qualified Codes: G43.109 - Migraine with aura, not intractable, without status migrainosus Additional Impression: HTN (hypertension) Hypertension type: unspecified Qualified Codes: I10 - Essential (primary) hypertension CECILIA GALLEGO July 22, 2017 11:52
[2017-07-22] MEDS ORDERED: CRAN200C5 PO (12:03)
[2017-07-22] MEDS ORDERED: AMLO2.5T74 PO (12:03)
[2017-07-22] MEDS ORDERED: GLUC1TAB13 PO (12:03)
[2017-07-22] MEDS ORDERED: VALS320T12 PO (12:03)
[2017-07-22] MEDS ORDERED: OMEG100027 PO (12:03)
[2017-07-22] MEDS ORDERED: AZIT-1 PO (12:03)
[2017-07-22 12:18] LABS: PLATELET COUNT, AUTOMATED 198 K/uL (150-450)
--- NOTE | 2017-07-22 12:48 | RADIOLOGY IMAGING REPORT ---
FACILITY: [facility] PATIENT NAME: Catherine Ward : 1935 MR: [id number] V: [id number] EXAM DATE: ORDERING PHYSICIAN: CECILIA GALLEGO [place]CHN[place] [facility] [place] : 1935 Visit/Account:[id number] Date of Sevice: 07/22/2017 CHEST PA AND LAT COMPARISONS: 2 view chest dated July 29, 2016 ADDITIONAL PERTINENT HISTORY: Headache FINDINGS: Cardiomediastinal silhouette: Negative. Pulmonary vasculature: Negative. Lung santoyo: Negative. Pleural spaces: Negative. Osseous structures: Minimal scoliotic curvature convex to the left centered at T12-L1. Spondylitic c hange involving the upper lumbar spine. Surrounding soft tissues: Negative. IMPRESSION: No evidence of acute cardiopulmonary disease. Report Dictated By: Cesario Esparza MD at 07/22/2017 12:42 PM Report E-Signed By: Cesario Esparza MD at 07/22/2017 12:44 PM WSN:[id number]
--- NOTE | 2017-07-22 12:52 | EKG ---
[place] [facility] [place] NAME: MARY MEDEROS : [id number] MR: [id number] V: [id number] EXAM DATE: ORDERING PHYSICIAN: CECILIA GALLEGO TECHNOLOGIST: BRENNAN Test Reason : HTN Blood Pressure : / mmHG Vent. Rate : 053 BPM Atrial Rate : 053 BPM P-R Int : 142 ms QRS Dur : 082 ms QT Int : 470 ms P-R-T Axes : 063 002 050 degrees QTc Int : 441 ms Sinus bradycardia Otherwise normal ECG When compared with ECG of 08-JUL-2017 09:33, aberrant conduction is no longer present Confirmed by TERRI CORDOBA ([id number]) on 07/22/2017 1:47:37 PM Referred By: KEVIN Confirmed By:TERRI CORDOBA
--- NOTE | 2017-07-22 12:52 | RADIOLOGY IMAGING REPORT ---
[place] [facility] [place] Catherine Ward : 1935 MR: [id number] V: [id number] EXAM DATE: ORDERING PHYSICIAN: CECILIA GALLEGO TECHNOLOGIST: [place] [facility] [place] Catherine Ward : 1935 Visit/Account:[id number] Date of Sevice: 07/22/[address] scan without contrast COMPARISONS: Head CT scan without contrast dated July 08, 2017 ADDITIONAL PERTINENT HISTORY: Headache TECHNIQUE: Multiple axial images were obtained from the skull base to the vertex without IV contrast . One of the following dose optimization techniques was utilized in the performance of this exam: Aut omated exposure control; adjustment of the mA and/or kV according to the patient's size; or use of an iterative reconstruction technique. Specific details can be referenced in the facility's radiology CT exam operational policy. FINDINGS: Midline shift: Negative Ventricles: Negative Brain parenchyma: Mild patchy hypoattenuation within the periventricular and subcortical white matte r, nonspecific but likely representing small vessel ischemic change on a chronic basis. Extra-axial spaces: Moderate cerebral atrophy. Continued prominence of the extra-axial space overlyi ng both frontal lobes favored to represent extensive atrophic changes involving the frontal lobes. No new extra-axial fluid collections when compared to previous exam. Intracranial vasculature: Cavernous internal carotid and distal vertebral artery calcifications. Oth erwise negative Osseous structures: Negative Paranasal sinuses and mastoid air cells: Negative Surrounding soft tissues and orbits: Negative IMPRESSION: 1. Age related changes as described above. 2. No evidence of acute intracranial pathology. Report Dictated By: Cseario Esparza MD at 07/22/2017 12:44 PM Report E-Signed By: Cesario Esparza MD at 07/22/2017 12:47 PM WSN:[id number]
[2017-07-22] MEDS ORDERED: KETOROLAC 15 MG/ML VIAL IVP ONE (13:15)
[2017-07-22] MEDS ORDERED: LABETALOL HCL 100 MG/20ML VIAL IVP ONE (13:15)
[2017-07-22] MEDS ORDERED: ORPHENADRINE 60MG/2ML INJ IVP ONE (13:15)
[2017-07-22] MEDS ORDERED: amLODIPine BESYL(*) 2.5 MG TAB PO ONE (13:15)
[2017-07-22 14:30] VITALS: BP 164/84
== END 2017-07-22 14:40 | disposition home or self-care (01) ==
LOC: ER 12:10
DX: G43.109 Migraine with aura, not intractable, without status migrainosus (principal); I10 Essential (primary) hypertension; E11.9 Type 2 diabetes mellitus without complications; E78.5 Hyperlipidemia, unspecified; E03.9 Hypothyroidism, unspecified
CPT/HCPCS: 70450; 71046; 81001; 84484; 85025; 85651; 86140; 87088; 93005; 96374; 96375; 99284; A9270; J1885; J2360; J3490; 82040; 82247; 82310; 82374; 82435; 82565; 82947; 84075; 84132; 84155; 84295; 84450; 84460; 84520

== ENCOUNTER 2017-07-23 22:55 | Emergency (ER) | payer MEDICARE, BC ==
[2013-12-24 10:25] VITALS: Wt 67.6 kg
--- NOTE | 2017-07-23 22:59 | ER Report ---
History and Physical Time Seen By MD: 22:56 HPI/ROS CHIEF COMPLAINT: Headache, elevated blood pressure HISTORY OF PRESENT ILLNESS: 82-year-old female brought in by EMS from home complaining of not feeling well. She notes a mild headache. She has a history of migraines. She had elevated blood pressure. She was seen in the ER yesterday. That note was reviewed. Patient had her amlodipine increased to 2.5 mg by mouth twice a day. REVIEW OF SYSTEMS: Respiratory: No cough, no dyspnea. Cardiovascular: No chest pain, no palpitations. Gastrointestinal: No vomiting, no abdominal pain. Musculoskeletal: No back pain. Allergies: Uncoded Allergies: hayfever (Allergy, Mild, UNKNOWN, 08/09/11) Home Meds Active Scripts Ipratropium [place] 0.06% Ns (IPRATROPIUM BROMIDE 0.06% NS) 15 Ml [place], 2 SPRAYS NS BID for 30 Days, #1 BOT 11 Refills Prov:LYNDA TORREZ JR, MD 03/14/17 [Nadolol] 40 MG TAB No Conflict Check, 40 MG PO DAILY, #0 TAB Restart in about 3 days. If you get light headed on the medication, stop it and follow up with your regular doctor. Prov:TERRI CORDOBA MD 12/26/13 Reported Medications Valsartan (DIOVAN) 320 Mg Tablet, 320 MG PO BID 07/22/17 Amlodipine Besylate (AMLODIPINE BESYLATE) 2.5 Mg Tablet, 1 TAB PO QDAY, #30 TAB 07/22/17 Azithromycin (ZITHROMAX) 250 Mg Tablet, 1 TAB PO 3XW, TAB 07/22/17 Glucosamine Hcl/Chondr Lorenzo A Na (OSTEO BI-FLEX CAPLET) 1 Each Tablet, 1 EACH PO 07/22/17 Cranberry Extract (CRANBERRY) 200 Mg Capsule, 200 MG PO, CAPSULE 07/22/17 [place]-3 Fatty Acids (FISH OIL CONCENTRATE) 1,000 Mg Capsule, 1000 MG PO, CAPSULE 07/22/17 Ascorbic Acid (VITAMIN C) 500 Mg Tablet, 500 MG PO QDAY, TAB 07/08/17 Calcium Carbonate (CALCIUM) 600 Mg Tablet, 1200 MG PO QDAY 07/08/17 Aspirin (ASPIR 81) 81 Mg Tablet.dr, 81 MG PO Q2D, TAB 07/08/17 [magnesium ] No Conflict Check, 100 MG PO BID 07/08/17 Montelukast Sodium (SINGULAIR) 10 Mg Tablet, 1 TAB PO QDAY, TAB 07/08/17 Levothyroxine Sodium (LEVOTHYROXINE SODIUM) 50 Mcg Tablet, QDAY 07/08/17 Nortriptyline Hcl (NORTRIPTYLINE HCL) 10 Mg Cap, QDAY 07/08/17 Ethambutol Hcl (ETHAMBUTOL HCL) 400 Mg Tablet, 400 MG PO 02/23/17 Folic Acid (FOLIC ACID) 1 Mg Tablet, 1 MG PO QDAY, TAB 02/23/17 Rifampin (RIFAMPIN) 300 Mg Capsule, 300 MG PO, CAPSULE 02/23/17 Metformin Hcl (METFORMIN HCL) 500 Mg Tablet, 1 TAB PO BID, TAB 02/23/17 Omeprazole Magnesium (PRILOSEC OTC) 20 Mg Tablet.dr, 1 TAB PO QDAY TAKE ONE TABLET BY MOUTH ONCE A DAY 12/16/13 Multivitamins (Multivitamin) 1 Tab Tablet, 1 TAB PO QDAY 12/01/08 Lovastatin (Lovastatin) 40 Mg Tablet, 40 MG PO QDAY 12/01/08 Tolterodine Tartrate (Detrol La) 4 Mg Cap.sr.24h, 4 MG PO QDAY 12/01/08 Reviewed Nurses Notes: Yes Old Medical Records Reviewed: Yes Smoking Status: Never Smoker Hx Alcohol Use: No Constitutional Vital Sign - Last 24 Hours 07/23/17 07/23/17 07/23/17 07/23/17 22:57 22:57 23:00 23:25 Temp 97.4 Pulse 60 59 Resp 18 15 B/P (MAP) 144/103 (117) 144/103 187/88 (121) Pulse Ox 91 92 O2 Delivery Room Air 07/23/17 07/23/17 23:30 23:35 Pulse 61 Resp 11 B/P (MAP) 162/78 (106) Pulse Ox 91 Physical Exam Vital signs stable, afebrile, blood pressure elevated General Appearance: The patient is alert, has no immediate need for airway protection and no current signs of toxicity. Eyes: Pupils equal and round no injection. Respiratory: Chest is non tender, lungs are clear to auscultation. Cardiac: regular rate and rhythm, no murmur Gastrointestinal: Abdomen is soft and non tender, no masses, bowel sounds normal. Musculoskeletal: Neck: Neck is supple and non tender. Extremities have full range of motion and are non tender. Skin: No rashes or lesions. DIFFERENTIAL DIAGNOSIS: After history and physical exam differential diagnosis was considered for headache including but not limited to subarachnoid hemorrhage , migraine headache, tension headache and infectious causes such as meningitis, pharyngitis and sinusitis. Hypertension, adverse medication effects Medical Decision Making ED Course/Re-evaluation ED Course Patient was admitted to an examination room. H&P was done. The differential diagnoses was considered. On clinical examination. Patient's blood pressures elevated. She's medicated with labetalol 50 mg by mouth. And Tylenol 650 mg. After observation a proximal one hour. Patient's blood pressure is down. She feels better. Her headache still persists slightly headed 4/10. She is given ibuprofen 400 mg by mouth. On reevaluation at approximately 30 minutes. Patient's headache is nearly gone. Her blood pressure is good. She is advised to follow-up with her primary care physician this week. She might benefit from using tramadol for control of her headache pain. She states she's taken it before. Decision to Disposition Date: July 24, 2017 Decision to Disposition Time: 00:18 Depart Departure Latest Vital Signs Vital Signs Date Time Temp Pulse Resp B/P (MAP) Pulse Ox O2 Delivery O2 Flow Rate FiO2 07/23/17 23:35 61 11 91 07/23/17 23:30 162/78 (106) 07/23/17 22:57 97.4 Room Air Impression: Primary Impression: HTN (hypertension) Additional Impression: Migraine Condition: Improved Disposition: HOME OR SELF-CARE Referrals: GABRIEL HUNTER (PCP) Patient Instructions: Hypertension (ED), Migraine Headache (ED) Additional Instructions: Follow-up with your primary care for reevaluation in 2-5 days Problem Qualifiers Primary Impression: HTN (hypertension) Hypertension type: essential hypertension Qualified Codes: I10 - Essential ( primary) hypertension Additional Impression: Migraine Migraine type: unspecified Status migrainosus presence: without status migrainosus Intractability: not intractable Qualified Codes: G43.909 - Migraine, unspecified, not intractable, without status migrainosus NISHA COATES DO July 23, 2017 22:58
[2017-07-23] MEDS ORDERED: ACETAMINOPHEN 325 MG TAB PO ONE (23:15)
[2017-07-23] MEDS ORDERED: LABETALOL HCL 100 MG TAB PO ONE (23:15)
[2017-07-23 23:30] VITALS: BP 162/78
[2017-07-24] MEDS ORDERED: IBUPROFEN 200 MG TAB PO ONE (00:05)
== END 2017-07-24 00:55 | disposition home or self-care (01) ==
LOC: ER 22:58
DX: I10 Essential (primary) hypertension (principal); G43.909 Migraine, unspecified, not intractable, without status migrainosus
CPT/HCPCS: 99282; A9270

== ENCOUNTER → 2017-07-23 | Outpatient (CLI) | payer MEDICARE, BC ==
[2013-12-24 10:25] VITALS: BMI 25.7
[~2017-07-23] MED LIST changes: +AMLO2.5T74 PO; +CRAN200C5 PO; +GLUC1TAB13 PO; +OMEG100027 PO; +VALS320T12 PO
== END ==
LOC: AMB 22:40
PROVIDERS: ATTEND Nurse Practitioner
DX: R03.0 Elevated blood-pressure reading, without diagnosis of hypertension (principal); R51 Headache
CPT/HCPCS: A0425; A0429

== ENCOUNTER → 2017-08-28 | Outpatient (CLI) | payer MEDICARE, BC ==
[2013-12-24 10:25] VITALS: BMI 25.7
--- NOTE | 2017-08-28 17:55 | RADIOLOGY IMAGING REPORT ---
FACILITY: [facility] [place] PATIENT NAME: MARY MEDEROS : [id number] MR: [id number] V: [id number] EXAM DATE: [id number] ORDERING PHYSICIAN: GABRIEL HUNTER TECHNOLOGIST: Azul Cruz PROCEDURE: MAMMOGRAM SCREENING RIGHT UNILATERAL WITH CAD ASSISTED INTERPRETATION & 3D TOMOSYNTHESIS COMPARISON: Prior mammograms 08/24/16, 08/24/15, 08/21/14, 08/12/13, 08/08/12, 08/08/11. INDICATIONS: SCREENING FINDINGS: Moderately dense fibroglandular tissue is seen throughout the Right breast. The parenchymal pattern has remained stable allowing for difference in mammographic technique & patient positioning. There is no evidence of malignant appearing mass, malignant appearing calcifications or other secondary sign of malignancy in the Right breast. DIAGNOSTIC CATEGORY 1--NEGATIVE. RECOMMENDATIONS: ROUTINE MAMMOGRAM AND CLINICAL EVALUATION. IMPRESSION: BIRADS 1: Negative. No significant abnormality of the Right breast is seen. Dictated by: Kya Gregory M.D. on 08/28/2017 at 10:54 Transcribed by: LORY on 08/28/2017 at 11:41 Approved by: Kya Gregory M.D. on 08/28/2017 at 17:54 [facility]
== END ==
LOC: MAMO 01:37
PROVIDERS: ATTEND Nurse Practitioner Family
DX: Z12.31 Encounter for screening mammogram for malignant neoplasm of breast (principal)
CPT/HCPCS: 77063; 77067

== ENCOUNTER → 2017-09-20 | Outpatient (CLI) | payer MEDICARE, BC ==
[2013-12-24 10:25] VITALS: BMI 25.7
== END ==
LOC: RESP 20:48
PROVIDERS: ATTEND Nurse Practitioner Family
DX: G47.33 Obstructive sleep apnea (adult) (pediatric) (principal); G47.36 Sleep related hypoventilation in conditions classified elsewhere

== ENCOUNTER → 2017-09-27 | Outpatient (CLI) | payer MEDICARE, BC ==
[2013-12-24 10:25] VITALS: BMI 25.7
== END ==
LOC: LAB 08:27
PROVIDERS: ATTEND Internal Medicine
DX: I10 Essential (primary) hypertension (principal)
CPT/HCPCS: 36415; 82088; 82310; 82374; 82435; 82533; 82565; 82947; 83835; 83970; 84132; 84244; 84295; 84443; 84520

== ENCOUNTER → 2017-10-11 | Outpatient (CLI) | payer MEDICARE, BC ==
[2013-12-24 10:25] VITALS: BMI 25.7
[2017-10-11 08:25] LABS: PLATELET COUNT, AUTOMATED 179 K/uL (150-450)
== END ==
LOC: LAB 08:01
PROVIDERS: ATTEND Internal Medicine
DX: A31.0 Pulmonary mycobacterial infection (principal)
CPT/HCPCS: 36415; 82040; 82247; 82310; 82374; 82435; 82565; 82947; 84075; 84132; 84155; 84295; 84450; 84460; 84520; 85025

== ENCOUNTER → 2018-01-09 | Outpatient (CLI) | payer MEDICARE, BC ==
[2013-12-24 10:25] VITALS: BMI 25.7
[~2018-01-09] MED LIST changes: -AMLO2.5T74 PO; +AMLO2.5T76 PO; -METF-411 PO; +METF-450 PO
[2018-01-09 10:10] LABS: LDL CHOLESTEROL 84 mg/dl
== END ==
LOC: LAB 07:56
PROVIDERS: ATTEND Internal Medicine Cardiovascular Disease
DX: E78.00 Pure hypercholesterolemia, unspecified (principal); I10 Essential (primary) hypertension
CPT/HCPCS: 36415; 82040; 82247; 82310; 82374; 82435; 82465; 82565; 82947; 83718; 84075; 84132; 84155; 84295; 84450; 84460; 84478; 84520

== ENCOUNTER → 2018-05-08 | Outpatient (CLI) | payer MEDICARE, BC ==
[2013-12-24 10:25] VITALS: BMI 25.7
[~2018-05-08] MED LIST changes: -AMLO2.5T76 PO; +AMLO2.5T78 PO
--- NOTE | 2018-05-08 12:12 | RADIOLOGY IMAGING REPORT ---
[place] [facility] [place] NAME: Catherine Ward : 1935 MR: [id number] V: [id number] EXAM DATE: ORDERING PHYSICIAN: ELIZABETH JOSE TECHNOLOGIST: Location: [facility] [place] Patient: Catherine Ward : 1935 Visit/Account:[id number] Date of Sevice: 05/08/2018 CT CHEST W/O CONTRAST History: Pulmonary nodules TECHNIQUE: Contiguous axial images were performed through the chest to the level of the adrenal gla nds. No IV contrast was administered. Coronal and sagittal reformatting was also performed.Dose Lower ing Technique One of the following dose optimization techniques was utilized in the performance of this exam: Autom ated exposure control; adjustment of the mA and/or kV according to the patient's size; or use of an i terative reconstruction technique. Specific details can be referenced in the facility's radiology C T exam operational policy. COMPARISON STUDIES: May 18, 2017. Lungs / Pleura: Reidentified in the right upper lobe is a 4 mm noncalcified nodule is identified on image 165 of series 4 that appears unchanged. In the left upper lobe there is a 6 mm slightly irregular nodule appears unchanged. There is coarse linear stranding in the medial left upper lobe that appears relatively unchanged. There is a 2 mm subpleural calcified nodule lateral aspect of the right upper lobe that appears uncha nged best seen on image 139 There is chronic scarring/atelectasis in the right lower lobe that appears relatively unchanged Chronic scarring in the lingula also appears unchanged and also anterolateral left lower lobe. There is no evidence of pleural effusions. No new pulmonary nodules are identified. Mediastinum/nodes: negative. Heart and vessels: There mild atherosclerotic calcifications in the aortic arch and moderate calcifi cations in the coronary arteries Musculoskeletal / Body wall: Spondylotic changes in the cervical and thoracic spine. Postsurgical changes from a left mastectomy again noted Upper abdomen: There is a small hiatal hernia IMPRESSION: The previously described poorly nodules measuring up to 6 mm have remained stable Chronic scarring/atelectasis in the right lower lobe, lingula and anterior left lower lobe all remain ed stable. Small hiatal hernia Report Dictated By: Kya Gregory MD at 05/08/2018 11:28 AM Report E-Signed By: Kya Gregory MD at 05/08/2018 12:08 PM WSN:CARY
== END ==
LOC: CT 02:04
PROVIDERS: ATTEND Nurse Practitioner Family
DX: R91.8 Other nonspecific abnormal finding of lung field (principal)
CPT/HCPCS: 71250

== ENCOUNTER → 2018-05-31 | Outpatient (CLI) | payer MEDICARE, BC ==
[2013-12-24 10:25] VITALS: BMI 25.7
== END ==
LOC: AUD 09:00
PROVIDERS: ATTEND Nurse Practitioner Family
DX: H91.90 Unspecified hearing loss, unspecified ear (principal)
CPT/HCPCS: 92552

== ENCOUNTER → 2018-07-25 | Outpatient (CLI) | payer MEDICARE, BC ==
[2013-12-24 10:25] VITALS: BMI 25.7
--- NOTE | 2018-07-26 14:52 | RT HOLTER TEST ---
[place] [facility] [place] NAME: MARY MEDEROS : [id number] MR: [id number] V: [id number] EXAM DATE: ORDERING PHYSICIAN: FROILAN CISNEROS TECHNOLOGIST: JOSE ANTONIO Hook-up date: 2018-07-25 11:01:00 Duration: 06:33:00 Test Indications: PALPITATIONS Medications: N/A 95939 QRS complexes 138 Ventricular ectopics which represent <1 % of total QRS comp. 34 Supraventricular ectopics which represent <1 % of total QRS comp. * Paced QRS complexes which represent % of total QRS comp. VENTRICULAR ECTOPY 138 Isolated 0 Bigeminal Cycles 0 Couplets 0 Runs 0 Beats in Runs * Beats LONGEST at * BPM at :: -- * Beats FASTEST at * BPM at :: -- SUPRAVENTRICULAR ECTOPY 17 Isolated 5 Couplets 2 Runs 7 Beats in Runs 4 Beats LONGEST at 109 BPM at 13:51:14 2018-07-25 3 Beats FASTEST at 120 BPM at 16:30:32 2018-07-25 HEART RATES 54 MIN at 14:41:41 2018-07-25 79 AVG 120 MAX at 11:04:12 2018-07-25 LONGEST RR 1.432 secs at 16:32:42 2018-07-25 S-T LEVELS Channel 1 -12.800 mm MIN at 11:01:00 2018-07-25 -12.800 mm MAX at 11:01:00 2018-07-25 Channel 2 -12.800 mm MIN at 11:01:00 2018-07-25 -12.800 mm MAX at 11:01:00 2018-07-25 Channel 3 -12.800 mm MIN at 11:01:00 2018-07-25 -12.800 mm MAX at 11:01:00 2018-07-25 For length of recording (~6.5 hours): Frequent ventricular ectopy. No couplets, triplets, runs. Occasional supraventricular ectopy with five (5) couplets and two short runs of three (3) and four (4 ) beats. No pauses of more than two (2.0) seconds were recorded. Intermittent T wave flattening/inversion in one lead (3) was noted during recording. Confirmed by DIXON MCKEON ([id number]) on 07/26/2018 2:51:49 PM Referred By: Overread By: DIXON MCKEON
== END ==
LOC: RESP 02:06
PROVIDERS: ATTEND Internal Medicine
DX: R00.2 Palpitations (principal)
CPT/HCPCS: 93225

== ENCOUNTER → 2018-08-29 | Outpatient (CLI) | payer MEDICARE, BC ==
[2013-12-24 10:25] VITALS: BMI 25.7
--- NOTE | 2018-08-29 14:54 | RADIOLOGY IMAGING REPORT ---
FACILITY: [facility] PATIENT NAME: MARY MEDEROS : [id number] MR: [id number] V: [id number] EXAM DATE: [id number] ORDERING PHYSICIAN: INOCENCIA ESCALANTE TECHNOLOGIST: Mary Jane Echevarria PROCEDURE: MAMMOGRAM SCREENING RIGHT UNILATERAL REASON FOR STUDY: Screening FAMILY HISTORY OF BREAST CANCER: Mother age 50 & self BREAST PROCEDURES/TREATMENTS: A benign surgical biopsy of the Right breast & mastectomy & radiation therapy of Left breast 1986. COMPARISON: 08/28/17, 08/24/16, 08/24/15, 08/21/14, 08/12/13, 08/08/12 VIEWS OBTAINED: Unilateral 2D & 3D full field Right CC & MLO projections BREAST DENSITY: There are scattered areas of fibroglandular density throughout the breast. MAMMOGRAM FINDINGS: The parenchymal pattern has remained stable allowing for difference in mammographic technique & patient positioning. IMPRESSION: BIRADS 1: Negative. DIAGNOSTIC CATEGORY 1--NEGATIVE. RECOMMENDATIONS: ROUTINE MAMMOGRAM AND CLINICAL EVALUATION. Dictated by: Kya Gregory M.D. on 08/29/2018 at 8:33 Transcribed by: LYNN on 08/29/2018 at 10:29 Approved by: Kya Gregory M.D. on 08/29/2018 at 14:50 [facility]
== END ==
LOC: MAMO 00:26
PROVIDERS: ATTEND Nurse Practitioner Family
DX: Z12.31 Encounter for screening mammogram for malignant neoplasm of breast (principal)
CPT/HCPCS: 77063; 77067

== ENCOUNTER → 2018-09-16 | Outpatient (CLI) | payer MEDICARE, BC ==
[2013-12-24 10:25] VITALS: BMI 25.7
--- NOTE | 2018-09-16 10:14 | RADIOLOGY IMAGING REPORT ---
FACILITY: [facility] PATIENT NAME: Catherine Ward : 1935 MR: [id number] V: [id number] EXAM DATE: ORDERING PHYSICIAN: INOCENCIA ESCALANTE TECHNOLOGIST: Location: [facility] Patient: Catherine Ward : 1935 Visit/Account:[id number] Date of Sevice: 09/16/2018 DEXA Scan Clinical history: Osteopenia. Comparison: DEXA scan from 04/18/2016.. LUMBAR SPINE: The bone mineral density (BMD) measured from L1-L4 correlates with a Z-score 5.9 and a T-score of 4. 1 which is Normal as defined by the World Health Organization. The corresponding risk of fracture in the lumbar spine is Not increased compared with a young adult reference population. This value has increased by 6.0 % since the prior study. More than 5% change is considered significant. HIP: Bone mineral density (BMD) measured in the Left femoral neck region correlates with a Z-score 1.6 and a T-score of -0.7 which is Normal as defined by the World Health Organization. The corresponding ri sk of fracture in the hip is Not increased compared with a young adult reference population. This tot al hip value has increased by 5.6 % since the prior study. More than 5% change is considered signifi cant. Bone mineral density (BMD) measured in the Femoral Neck region measures 0.944 g/cm2. FOREARM: The bone mineral density (BMD) measured in the ULTRADISTAL Left forearm, where trabecular bone predom inates, correlates with a Z-score 0.3 and a T-score of -2.9 which is osteoporosis as defined by the W orld Health Organization. The corresponding risk of fracture in the distal forearm is by compared wi th a young adult reference population. The bone mineral density (BMD) in the MIDSHAFT of the forearm, where cortical bone predominates, anish elates with a Z-score 0.9 and a T-score of -2.3 which is osteopenia as defined by the World Health Or ganization. The corresponding risk of fracture in the midshaft of the forearm is increased compared w ith a young adult reference population. IMPRESSION: 1. Lumbar spine: Normal. There has been increase in the bone mineral density since the previous exa m. 2. Left Hip: Osteoporosis. There has been increase in the total hip bone mineral density since the previous exam. 3. Femoral Neck: Bone Mineral Density is 0.944 g/cm2 4. Left Forearm: Osteopenia. The next DEXA scan of this patient should include the following sites: L1-L4, left hip, and the left forearm. FRAX? WHO Fracture Risk Assessment Tool link: <http://www.shef.ac.uk/FRAX/tool.jsp?locationValue=9> PLEASE NOTE: 1) The World Health Organization defines low BMD as follows: T-score Normal > -1 Osteopenia < -1 and > -2.5 Osteoporosis < -2.5 without fractures Established osteoporosis < -2.5 with fractures 2) In general, you may wish to consider: Diagnosis Treatment Follow-up DEXA Normal BMD Prevention 2-3 years Osteopenia Prevention/therapy 1-2 years Osteoporosis Therapy Yearly 3) Fracture risk estimated from the T-score is more accurate for vertebral fractures (often spontane ous) than for hip fractures. Report Dictated By: Maulik Caldwell at 09/16/2018 10:04 AM Report E-Signed By: Maulik Caldwell at 09/16/2018 10:07 AM LITZYN:MICHAEL
== END ==
LOC: RAD 07:01
PROVIDERS: ATTEND Nurse Practitioner Family
DX: M85.88 Other specified disorders of bone density and structure, other site (principal)
CPT/HCPCS: 77080

== ENCOUNTER → 2018-09-30 | Outpatient (CLI) | payer MEDICARE, BC ==
[2013-12-24 10:25] VITALS: BMI 25.7
[~2018-09-30] MED LIST changes: +DENOSUMAB 60 MG/1 ML SYR SUBQ ONE
[2018-10-01 09:02] VITALS: BP 122/76
== END ==
LOC: SPU 15:22
PROVIDERS: ATTEND Nurse Practitioner Family
DX: N95.9 Unspecified menopausal and perimenopausal disorder (principal)